=== PATIENT | female | born 1970 | race Caucasian/White ===

== ENCOUNTER 2016-11-08 04:37 | Emergency (ER) | payer MEDICAID ==
[~2016-11-08] VITALS: Wt 67.2 kg
[~2016-11-08 04:37] MED LIST: CALC-600 PO; CEPH500C PO; FERR27TA PO; HYDR-906 PO; IBUP-1542 PO
--- NOTE | 2016-11-08 04:53 | ERD ---
ER Documentation Chief Complaint Date/Time DATE: 11/08/16 TIME: 04:48 Chief Complaint cough/sore throat/runny nose/chest/back pain when coughing x 1 week HPI 46-year-old female presents here in emergency department for complaints of cough , sore throat, runny nose, nasal congestion for 1 week. Patient has been having dry cough, does not cough up any phlegm or blood. Patient has been having runny nose, nasal congestion with clear nasal discharge. Patient does not complain of sore throat or ear pain. Patient does not have any sick contacts. Patient is complaining of upper back and mid chest pain after coughing a lot. Patient described the pain as sharp pain, 4/10 scale, is worse upon coughing. Patient did not take any medications to help with symptoms. Patient denies any fever or chills. ROS All systems reviewed and are negative except as per history of present illness. Medications Home Meds Active Scripts Ibuprofen* (Motrin*) 600 Mg Tab, 600 MG PO Q6, #14 TAB Prov:JAMIE ORTA MD 08/28/15 Hydrocodone Bit-Acetaminophen ([place]) 5-325 Mg Tablet, 1 TAB PO Q4H Y for PAIN for 10 Days, TAB Prov:JUNIOR GOODE NP 08/05/15 Cephalexin* (Cephalexin*) 500 Mg Capsule, 500 MG PO Q6 for 10 Days, CAP Prov:JUNIOR GOODE I. JENNIE 08/05/15 Ibuprofen* (Motrin*) 600 Mg Tab, 600 MG PO Q6, #30 TAB Prov:JUNIOR GOODE NP 08/05/15 Reported Medications Calcium (Calcium) 500 Mg Tablet, 500 MG PO AM 09/30/11 Ferrous Sulfate (Iron) 1 Tab Tablet, PO AM 09/30/11 Allergies Allergies: Coded Allergies: No Known Allergies (Verified Allergy, Unknown, 11/08/16) PMhx/Soc Medical and Surgical Hx: pt denies Medical Hx, pt denies Surgical Hx History of Surgery: No Anesthesia Reaction: No Hx Neurological Disorder: No Hx Respiratory Disorders: No Hx Cardiac Disorders: No Hx Psychiatric Problems: No Hx Miscellaneous Medical Probl: No Hx Alcohol Use: No Hx Substance Use: No Hx Tobacco Use: No FmHx Family History: No coronary disease, No diabetes, No other Physical Exam Vitals Vital Signs Date Time Temp Pulse Resp B/P Pulse Ox O2 Delivery O2 Flow Rate FiO2 11/08/16 04:40 99.1 92 20 140/88 99 Physical Exam GENERAL: The patient is well developed and appropriate for usual state of health, in no apparent distress. HEENT: Atraumatic. Ears: Normal tympanic membrane, no erythema or bulging. No ear canal swelling. No ear discharge. Nose: Erythematous nasal turbinates with clear nasal discharge. Throat: oropharynx erythematous with postnasal drip. No tonsillar swelling or tonsillar exudates. No lymphadenopathy. CHEST: Clear to auscultation bilaterally. There are no rales, wheezes or rhonchi. HEART: Regular rate and rhythm. No murmurs, clicks, rubs or gallops. No S3 or S4. ABDOMEN: Soft, nontender and nondistended. Good bowel sounds. No rebound or guarding. No gross peritonitis. No gross organomegaly or masses. No Silvestre sign or McBurney point tenderness. BACK: No midline or flank tenderness. EXTREMITIES: Equal pulses bilaterally. There is no peripheral clubbing, cyanosis or edema. No focal swelling or erythema. Full range of motion. Grossly neurovascularly intact. NEURO: Alert and oriented. Cranial nerves 2-12 intact. Motor strength in all 4 extremities with 5/5 strength. Sensation grossly intact. Normal speech and gait. SKIN: There is no apparent rash or petechia. The skin is warm and dry. HEMATOLOGIC AND LYMPHATIC: There is no evidence of excessive bruising or lymphedema. No gross cervical, axillary, or inguinal lymphadenopathy. Results 24 hrs EKG was done, read by me and is normal sinus rhythm at a rate of 95, normal axis , there is no ST changes or changes in the EKG that indicates any cardiac emergencies at this time. Patient's EKG was also reviewed by Dr. Grullon. Impression: no acute findings on EKG PROCEDURE: CHEST - 1 VIEW CLINICAL INDICATION: 46-year-old female with cough. TECHNIQUE: A single frontal AP view of the chest was performed portably. The images were reviewed on a PACS workstation. COMPARISON: None. FINDINGS: The cardiomediastinal silhouette has a normal appearance. There is no evidence for an infiltrate. There is no evidence for congestive heart failure. There is no evidence for pneumothorax. The osseous structures are intact. IMPRESSION: No evidence for active cardiopulmonary disease. .Crescencio Diallo MD, Date Time Electronically viewed and signed by .Crescencio Diallo MD, MD on 11/08/2016 05:16 .M/ CC: ROBERT FERNÁNDEZ [employer] Procedures/MDM Medical Decision Making: Patient symptoms are most likely consistent with acute bronchitis, which viral in origin. There is low suspicion for Pneumonia at this time since patients lungs sounds are clear, patient O2 saturation is normal and patient doesnt show any respiratory distress. Patients chest xray doesnt show infiltrates or any other cardiopulmonary emergencies at this time. There is low suspicion for other cardiopulmonary emergencies at this time such as CHF, Pulmonary Embolism, Pneumothorax, Aortic Aneurysm or any other cardiopulmonary emergencies at this time. There is low suspicion for sepsis. Patient appears well and is hemodynamically stable. Patient does not have any fever. EKG was done and was negative for any acute coronary syndrome.. Disposition: Home. Condition: Stable Prescriptions: Albuterol, guaifenesin with codeine, Zyrtec, ibuprofen Instructions: Patient is advised to take medications as prescribed. Patient is advised to rest. Patient advised to increase fluid intake, do humidifier at home and if possible, do salt water gargles. Patient is advised that if symptoms are worse, shortness of breath, uncontrolled fever, stridor, vomiting, worst signs and symptoms to return to emergency department immediately. Otherwise, patient is advised to follow up with primary doctor in 5-7 days. Departure Diagnosis: Primary Impression: Acute bronchitis Bronchitis organism: unspecified organism Qualified Code: J20.9 - Acute bronchitis, unspecified organism Condition: Stable Patient Instructions: Acute Bronchitis Additional Instructions: Patient is advised to take medications as prescribed. Patient is advised to rest. Patient advised to increase fluid intake, do humidifier at home and if possible, do salt water gargles. Patient is advised that if symptoms are worse, shortness of breath, uncontrolled fever, stridor, vomiting, worst signs and symptoms to return to emergency department immediately. Otherwise, patient is advised to follow up with primary doctor in 5-7 days. ROBERT FERNÁNDEZ NP Nov 08, 2016 04:53
--- NOTE | 2016-11-08 05:16 | RADRPT ---
PROCEDURE: CHEST - 1 VIEW CLINICAL INDICATION: 46-year-old female with cough. TECHNIQUE: A single frontal AP view of the chest was performed portably. The images were reviewed on a PACS workstation. COMPARISON: None. FINDINGS: The cardiomediastinal silhouette has a normal appearance. There is no evidence for an infiltrate. There is no evidence for congestive heart failure. There is no evidence for pneumothorax. The osseou s structures are intact. IMPRESSION: No evidence for active cardiopulmonary disease. .Crescencio Diallo MD, MD Date Time Electronically viewed and signed by .Crescencio Diallo MD, on 11/08/2016 05:16 .M/
[2016-11-08] MEDS ORDERED: CETI10CA PO (05:29)
[2016-11-08] MEDS ORDERED: ALBU8.5H3 INH (05:29)
[2016-11-08] MEDS ORDERED: IBUP-1542 PO (05:29)
[2016-11-08] MEDS ORDERED: GUAI473L22 PO (05:29)
[2016-11-08 05:40] VITALS: BP 120/77; PULSE 90; RESP 17; TEMP 99.3
== END 2016-11-08 05:40 | disposition home or self-care (01) ==
LOC: FTE 04:37
DX: J20.9 Acute bronchitis, unspecified (principal); R07.9 Chest pain, unspecified
CPT/HCPCS: 71010; 93005; Z7502